=== PATIENT | female | born 1980 | race Two or more races ===

== ENCOUNTER 2019-11-29 13:36 | Outpatient (CLI) | payer OTHER ==
[~2019-11-29] VITALS: Ht 177.8 cm; Wt 81.6 kg
[~2019-11-29 13:36] MED LIST: PRENATABS FA T1 EACH PO; SYNTHROID88 MCG PO
== END 2019-11-29 13:38 | disposition home or self-care (01) ==
LOC: LAB 13:36 → EDSTATUS 12-05 08:15 → O/R 12-05 08:15 → LAB 01-04 13:38
DX: N92.1 Excessive and frequent menstruation with irregular cycle (principal); Z01.818 Encounter for other preprocedural examination

== ENCOUNTER 2020-02-05 15:12 | Inpatient (IN) | payer OTHER ==
[~2020-02-05] VITALS: Ht 177.8 cm; Wt 81.6 kg
== END 2020-02-09 15:58 | disposition home or self-care (01) | DRG 742 ==
LOC: O/R 02-06 11:00 → OB/GYN 02-06 11:00 → SURG-SUITE 02-06 11:00 → OB/GYN 02-06 13:13 → SURG-SUITE 02-06 18:49
PROVIDERS: ADMIT Obstetrics & Gynecology; ATTEND Obstetrics & Gynecology
PROC: 0UB70ZZ Excision of Bilateral Fallopian Tubes, Open Approach (ICD-10-PCS; 2020-02-06)
PROC: 0UT90ZZ Resection of Uterus, Open Approach (ICD-10-PCS; principal; 2020-02-06 11:00)
DX: N72 Inflammatory disease of cervix uteri (principal); R71.0 Precipitous drop in hematocrit; E03.9 Hypothyroidism, unspecified